=== PATIENT | female | born 1965 | race African-American/Black ===

== ENCOUNTER 2021-11-10 21:04 | Emergency (ER) | payer MEDICAID ==
[~2021-11-10] VITALS: Ht 177.8 cm; Wt 70.3 kg
[2021-11-10 21:17] VITALS: BP_SYST 146
[2021-11-10 22:30] VITALS: BP_SYST 137
[2021-11-11] MEDS ORDERED: DIPH-TET-PERTUS Vaccine 0.5 ML VIAL (ADACEL) I.M. ONE (00:15)
[2021-11-11] MEDS ORDERED: LIDOCAINE 1% 10 MG/ML, 20 ML MDV INJ ONE (00:15)
[2021-11-11] MEDS ORDERED: BACITRACIN/POLYMYXIN B SULFATE 30 GM TOPICAL OINT. TP ONE (00:45)
[2021-11-11] MEDS ORDERED: BACITRACIN 1 GM OINT TP ONE (00:46)
== END 2021-11-11 04:00 | disposition home or self-care (01) ==
LOC: SED 21:04
DX: S61.512A Laceration without foreign body of left wrist, initial encounter (principal); W45.8XXA Other foreign body or object entering through skin, initial encounter; Y93.89 Activity, other specified; Y92.89 Other specified places as the place of occurrence of the external cause; Y99.8 Other external cause status
CPT/HCPCS: 90715; 99284

== ENCOUNTER 2022-05-06 02:28 | Inpatient (IN) | payer MEDICAID ==
[~2022-05-06] VITALS: Ht 177.8 cm; Wt 70.3 kg
[2022-05-06] MEDS ORDERED: MAGNESIUM CITRATE 300 ML ORAL SOLUTION PO ONE (02:45)
[2022-05-06] MEDS ORDERED: ONDANSETRON 4 MG ODT TAB PO ONE (02:45)
[2022-05-06] MEDS ORDERED: ONDA-8 TL (02:47)
[2022-05-06 02:51] VITALS: BP_SYST 122
[2022-05-06] MEDS ORDERED: NACL 0.9% 1,000 ML IV ONE ×2 (03:15→05:00)
[2022-05-06] MEDS ORDERED: PROCHLORPERAZINE EDISYLATE 10 MG/2 ML VIAL IVP ONE (03:15)
[2022-05-06] MEDS ORDERED: ONDANSETRON HCL 4 MG/2 ML VIAL IVP ONE ×3 (03:15→03:30)
[2022-05-06] MEDS ORDERED: PANTOPRAZOLE SODIUM 40 MG/VIAL (PROTONIX) IVP ONE (03:30)
[2022-05-06 03:44] LABS: BASOPHILS # (AUTO) 0.1 K/uL (0.0-0.2); BASOPHILS % (AUTO) 0.9 % (0.0-2.0); EOSINOPHILS % (AUTO) 0.4 % (0.0-4.0); HEMATOCRIT 41.2 % (36-48); HEMOGLOBIN 13.7 g/dL (12.0-16.0); LYMPHOCYTES # (AUTO) 0.8 K/uL (1.0-5.5); LYMPHOCYTES % (AUTO) 5.7 % (20.5-51.5); MEAN CORPUSCULAR HEMOGLOBIN 28 pg (27-31); MEAN CORPUSCULAR HGB CONC 33 % (32-36); MEAN CORPUSCULAR VOLUME 84 fL (79.0-98.0); MONOCYTES # (AUTO) 0.8 K/uL (0.0-1.0); NEUTROPHILS # (AUTO) 11.4 K/uL (1.8-7.7); PLATELET COUNT (AUTO) 323 K/uL (130-430); RED BLOOD CELL COUNT(AUTO) 4.91 MIL/uL (4.2-6.2); RED CELL DISTRIBUTION WIDTH 14.9 % (9.0-15.0); WHITE BLOOD COUNT (AUTO) 13.1 K/uL (4.8-10.8)
[2022-05-06 03:47] LABS: CALCIUM 9.4 mg/dL (8.4-11.0); POTASSIUM 3.4 mmol/L (3.5-5.1)
[2022-05-06 04:01] LABS: ALBUMIN 3.8 g/dL (3.4-4.8); TOTAL BILIRUBIN 0.3 mg/dL (0.0-1.0)
[2022-05-06] MEDS ORDERED: MORPHINE 2 MG/ML INJ. SYRINGE IVP PRN (05:15)
[2022-05-06] MEDS ORDERED: ZOLPIDEM TARTRATE 5 MG TABLET PO PRN (09:45)
[2022-05-06] MEDS ORDERED: ACETAMINOPHEN 500 MG TABLET PO PRN (09:45)
[2022-05-06] MEDS ORDERED: DOCUSATE SODIUM 100 MG/10 ML UDC PO PRN (09:45)
[2022-05-06] MEDS ORDERED: HYDROcodone/ACETAMIN 7.5-325 MG TAB PO PRN (09:45)
[2022-05-06] MEDS ORDERED: guaiFENesin/DEXTROMETHORPHAN 10 ML UDC PO PRN (09:45)
[2022-05-06 10:04] LABS: PROTHROMBIN TIME 10.1 SECS (9.5-12.5)
[2022-05-06 10:15] LABS: FREE T4 (FREE THYROXINE) 0.8 ng/dl (0.8-1.5); PHOSPHORUS 3.8 mg/dL (2.7-4.5); THYROID STIMULATING HORMONE 1.24 uIu/mL (0.36-3.74)
[2022-05-06] MEDS ORDERED: GASTROGRAFIN 120 ML ONE (11:54)
[2022-05-06] MEDS ORDERED: BISACODYL 10 MG/SUPPOSITORY RC PRN (13:00)
[2022-05-06] MEDS ORDERED: BISACODYL 10 MG/SUPPOSITORY RC ONE (13:00)
[2022-05-06 14:41] VITALS: BP_SYST 129
[2022-05-06 15:35] VITALS: BP_SYST 125
[2022-05-06] MEDS ORDERED: MINERAL OIL 133 ML ENEMA RC ONE (16:15)
[2022-05-06 19:35] VITALS: BP_SYST 139
[2022-05-07] VITALS: BP_SYST 118
[2022-05-07 06:38] LABS: BASOPHILS % (AUTO) 0.2 % (0.0-2.0); HEMATOCRIT 37.9 % (36-48); HEMOGLOBIN 12.5 g/dL (12.0-16.0); LYMPHOCYTES # (AUTO) 1.1 K/uL (1.0-5.5); LYMPHOCYTES % (AUTO) 8.4 % (20.5-51.5); MEAN CORPUSCULAR HEMOGLOBIN 28 pg (27-31); MEAN CORPUSCULAR HGB CONC 33 % (32-36); MEAN CORPUSCULAR VOLUME 85 fL (79.0-98.0); MONOCYTES # (AUTO) 1.1 K/uL (0.0-1.0); MONOCYTES % (AUTO) 8.8 % (1.7-9.3); NEUTROPHILS # (AUTO) 10.6 K/uL (1.8-7.7); NEUTROPHILS % (AUTO) 82.6 % (40.0-70.0); PLATELET COUNT (AUTO) 274 K/uL (130-430); RED BLOOD CELL COUNT(AUTO) 4.48 MIL/uL (4.2-6.2); RED CELL DISTRIBUTION WIDTH 14.4 % (9.0-15.0); WHITE BLOOD COUNT (AUTO) 12.9 K/uL (4.8-10.8)
[2022-05-07 06:56] LABS: CALCIUM 8.7 mg/dL (8.4-11.0); CREATININE 0.94 mg/dL (0.55-1.30); POTASSIUM 3.5 mmol/L (3.5-5.1)
[2022-05-07 08:00] VITALS: BP_SYST 133
[2022-05-07] MEDS ORDERED: POTASSIUM CHLORIDE 40 MEQ, LIDOCAINE JECT 2% PF 100 MG 50 MG in NS 250 ML IV PRN (09:00)
[2022-05-07 10:41] LABS: BILIRUBIN,URINE NEGATIVE (NEGATIVE); BLOOD, URINE NEGATIVE (NEGATIVE); CLARITY/URINE CLEAR (CLEAR); COLOR,URINE YELLOW (YELLOW); GLUCOSE,URINE NEGATIVE (NEGATIVE); KETONES,URINE TRACE (NEGATIVE); LEUKOCYTE ESTERASE ,URINE NEGATIVE (NEGATIVE); NITRITE, URINE NEGATIVE (NEGATIVE); PROTEIN URINE 1+ (NEGATIVE); UROBILINOGEN,URINE 0.2 (0.2-1.0)
[2022-05-07 11:02] LABS: BARBITURATE, URINE NEGATIVE (NEG <=200); BENZODIAZEPINE, URINE NEGATIVE (NEG <=150); CANNABINOID, URINE NEGATIVE (NEG <=50); COCAINE, URINE NEGATIVE (NEG <=150); METHAMPHETAMINES SCREEN,URINE NEGATIVE (NEG <=500); OPIATE, URINE NEGATIVE (NEG <=100); PHENCYCLIDINE SCREEN,URINE NEGATIVE (NEG <=25); UR TRICYCLIC ANTIDEPRESSANTS NEGATIVE (NEG <=300); URINE AMPHETAMINE NEGATIVE (NEG <=500); URINE METHADONE NEGATIVE (NEG <=200); URINE OXYCODONE SCREEN NEGATIVE (NEG <=100); URINE PROPOXYPHENE SCREEN NEGATIVE (NEG <=300)
[2022-05-07 12:00] VITALS: BP_SYST 132
[2022-05-07] MEDS ORDERED: BISACODYL 5 MG TABLET.DR (DULCOLAX) PO ONE (17:00)
[2022-05-07] MEDS ORDERED: GOLYTELY / COLYTE SOLUTION 4 LITERS PO ONE (18:00)
[2022-05-07 18:37] VITALS: BP_SYST 135
[2022-05-07 19:30] VITALS: BP_SYST 143
[2022-05-08 00:40] VITALS: BP_SYST 140
[2022-05-08 06:49] LABS: BASOPHILS % (AUTO) 0.1 % (0.0-2.0); HEMATOCRIT 39.1 % (36-48); HEMOGLOBIN 12.9 g/dL (12.0-16.0); LYMPHOCYTES % (AUTO) 8.8 % (20.5-51.5); MEAN CORPUSCULAR HEMOGLOBIN 28 pg (27-31); MEAN CORPUSCULAR HGB CONC 33 % (32-36); MEAN CORPUSCULAR VOLUME 85 fL (79.0-98.0); MONOCYTES # (AUTO) 0.9 K/uL (0.0-1.0); MONOCYTES % (AUTO) 7.8 % (1.7-9.3); NEUTROPHILS # (AUTO) 9.8 K/uL (1.8-7.7); NEUTROPHILS % (AUTO) 83.3 % (40.0-70.0); PLATELET COUNT (AUTO) 260 K/uL (130-430); RED BLOOD CELL COUNT(AUTO) 4.61 MIL/uL (4.2-6.2); RED CELL DISTRIBUTION WIDTH 14.7 % (9.0-15.0); WHITE BLOOD COUNT (AUTO) 11.8 K/uL (4.8-10.8)
[2022-05-08 07:44] LABS: PROTHROMBIN TIME 10.7 SECS (9.5-12.5)
[2022-05-08 08:00] VITALS: BP_SYST 139
[2022-05-08 08:05] LABS: CALCIUM 8.8 mg/dL (8.4-11.0); CREATININE 0.84 mg/dL (0.55-1.30); POTASSIUM 3.6 mmol/L (3.5-5.1)
[2022-05-08] MEDS: MIDAZOLAM HCL 5 MG/5 ML VIAL ONE ×3 (11:00→11:08)
[2022-05-08] MEDS: fentaNYL CITRATE/PF 100 MCG/2 ML AMP ONE ×2 (11:00→11:08)
[2022-05-08 12:55] VITALS: BP_SYST 142
[2022-05-08] MEDS: D5NS 1,000 ML IV SCH (18:45)
[2022-05-08] MEDS: ONDANSETRON HCL 4 MG/2 ML VIAL IVP PRN (23:43)
[2022-05-09 00:22] VITALS: BP_SYST 158
[2022-05-09 07:37] LABS: BASOPHILS % (AUTO) 0.2 % (0.0-2.0); HEMATOCRIT 37.6 % (36-48); HEMOGLOBIN 12.4 g/dL (12.0-16.0); LYMPHOCYTES # (AUTO) 1.5 K/uL (1.0-5.5); MEAN CORPUSCULAR HEMOGLOBIN 28 pg (27-31); MEAN CORPUSCULAR HGB CONC 33 % (32-36); MEAN CORPUSCULAR VOLUME 85 fL (79.0-98.0); MONOCYTES % (AUTO) 8.2 % (1.7-9.3); NEUTROPHILS # (AUTO) 9.7 K/uL (1.8-7.7); NEUTROPHILS % (AUTO) 79.6 % (40.0-70.0); PLATELET COUNT (AUTO) 253 K/uL (130-430); RED BLOOD CELL COUNT(AUTO) 4.43 MIL/uL (4.2-6.2); RED CELL DISTRIBUTION WIDTH 14.6 % (9.0-15.0); WHITE BLOOD COUNT (AUTO) 12.2 K/uL (4.8-10.8)
[2022-05-09 08:05] LABS: CALCIUM 8.8 mg/dL (8.4-11.0); CREATININE 0.94 mg/dL (0.55-1.30); POTASSIUM 3.7 mmol/L (3.5-5.1)
[2022-05-09 08:16] VITALS: BP_SYST 143
[2022-05-09] MEDS ORDERED: hydrALAZINE HCL 20 MG/ML VIAL IVP PRN (08:45)
[2022-05-09] MEDS: ONDANSETRON HCL 4 MG/2 ML VIAL IVP PRN (10:46)
[2022-05-09] MEDS: D5NS 1,000 ML IV SCH (11:25)
[2022-05-09 11:26] VITALS: BP_SYST 137
[2022-05-09 16:26] VITALS: BP_SYST 149
[2022-05-10 00:44] VITALS: BP_SYST 124
[2022-05-10] MEDS: D5NS 1,000 ML IV SCH ×2 (04:05→20:45)
[2022-05-10 07:03] LABS: BASOPHILS % (AUTO) 0.2 % (0.0-2.0); EOSINOPHILS % (AUTO) 0.1 % (0.0-4.0); HEMATOCRIT 37.3 % (36-48); HEMOGLOBIN 12.8 g/dL (12.0-16.0); LYMPHOCYTES # (AUTO) 1.6 K/uL (1.0-5.5); LYMPHOCYTES % (AUTO) 15.3 % (20.5-51.5); MEAN CORPUSCULAR HEMOGLOBIN 29 pg (27-31); MEAN CORPUSCULAR HGB CONC 34 % (32-36); MEAN CORPUSCULAR VOLUME 85 fL (79.0-98.0); MONOCYTES # (AUTO) 0.9 K/uL (0.0-1.0); NEUTROPHILS % (AUTO) 75.4 % (40.0-70.0); PLATELET COUNT (AUTO) 258 K/uL (130-430); RED CELL DISTRIBUTION WIDTH 14.5 % (9.0-15.0); WHITE BLOOD COUNT (AUTO) 10.5 K/uL (4.8-10.8)
[2022-05-10 07:15] LABS: CALCIUM 8.6 mg/dL (8.4-11.0); CREATININE 0.91 mg/dL (0.55-1.30)
[2022-05-10 08:00] VITALS: BP_SYST 117
[2022-05-10 12:00] VITALS: BP_SYST 128
[2022-05-10 16:00] VITALS: BP_SYST 117; BP_SYST 124
[2022-05-10 20:00] VITALS: BP_SYST 137
[2022-05-11] VITALS: BP_SYST 137
[2022-05-11] MEDS ORDERED: MAGNESIUM CITRATE 300 ML ORAL SOLUTION PO ONE (06:00)
[2022-05-11 07:12] LABS: INR 1.1 (0.8-1.2); PROTHROMBIN TIME 11.9 SECS (9.5-12.5)
[2022-05-11 07:20] LABS: BASOPHILS % (AUTO) 0.1 % (0.0-2.0); EOSINOPHILS % (AUTO) 0.2 % (0.0-4.0); HEMATOCRIT 38.3 % (36-48); HEMOGLOBIN 12.8 g/dL (12.0-16.0); LYMPHOCYTES # (AUTO) 1.5 K/uL (1.0-5.5); LYMPHOCYTES % (AUTO) 18.8 % (20.5-51.5); MEAN CORPUSCULAR HEMOGLOBIN 28 pg (27-31); MEAN CORPUSCULAR HGB CONC 33 % (32-36); MEAN CORPUSCULAR VOLUME 85 fL (79.0-98.0); MONOCYTES # (AUTO) 0.7 K/uL (0.0-1.0); MONOCYTES % (AUTO) 9.4 % (1.7-9.3); NEUTROPHILS # (AUTO) 5.6 K/uL (1.8-7.7); NEUTROPHILS % (AUTO) 71.5 % (40.0-70.0); PLATELET COUNT (AUTO) 248 K/uL (130-430); RED BLOOD CELL COUNT(AUTO) 4.51 MIL/uL (4.2-6.2); RED CELL DISTRIBUTION WIDTH 14.4 % (9.0-15.0); WHITE BLOOD COUNT (AUTO) 7.9 K/uL (4.8-10.8)
[2022-05-11 07:47] LABS: CALCIUM 8.6 mg/dL (8.4-11.0); CREATININE 0.89 mg/dL (0.55-1.30); POTASSIUM 3.8 mmol/L (3.5-5.1)
[2022-05-11 08:00] VITALS: BP_SYST 134
[2022-05-11 12:00] VITALS: BP_SYST 136
[2022-05-11] MEDS ORDERED: BUPIVACAINE LIPOSOME/PF 266 MG/20 ML VIAL INFIL ONE ×2 (13:01→13:15)
[2022-05-11] MEDS ORDERED: NS 1000 ML IV.SOLN IV ONE (13:15)
[2022-05-11] MEDS ORDERED: ROCURONIUM BROMIDE 10 MG/ML (ZEMURON) ONE (13:15)
[2022-05-11] MEDS ORDERED: KETOROLAC TROMETHAMINE 30 MG VIAL ONE (13:15)
[2022-05-11] MEDS ORDERED: BUPIVACAINE /PF 0.25% 10 ML VIAL INJ ONE (13:15)
[2022-05-11] MEDS ORDERED: SEVOFLURANE 15 MIN GAS INH ONE (13:15)
[2022-05-11] MEDS ORDERED: PROPOFOL 200MG/ 20ML VIAL (DIPRIVAN) IV ONE (13:15)
[2022-05-11] MEDS ORDERED: SUGAMMADEX SODIUM 200 MG/2 ML VIAL IV ONE (13:15)
[2022-05-11] MEDS ORDERED: MIDAZOLAM HCL 5 MG/5 ML VIAL ONE (13:15)
[2022-05-11] MEDS ORDERED: HYDROmorphone 2 MG/ML VIAL ONE (13:15)
[2022-05-11] MEDS ORDERED: METOCLOPRAMIDE HCL 10 MG/2 ML VIAL ONE (13:15)
[2022-05-11] MEDS ORDERED: DEXAMETHASONE SOD PHOSPHATE 4 MG/ML VIAL ONE (13:15)
[2022-05-11] MEDS ORDERED: ePHEDrine sulfate 50 MG/ML VIAL ONE (13:15)
[2022-05-11] MEDS ORDERED: ONDANSETRON HCL 4 MG/2 ML VIAL ONE (13:15)
[2022-05-11] MEDS ORDERED: metroNIDAZOLE 500 mg/NS 100 mL IVPB IV ONE (13:15)
[2022-05-11] MEDS ORDERED: NS IRRIG SOLN 1000 ML IR ONE (13:15)
[2022-05-11] MEDS ORDERED: LIDOCAINE 1% 10 MG/ML, 20 ML MDV ONE (13:15)
[2022-05-11] MEDS ORDERED: MEPERIDINE HCL/PF 25 MG/ML DISP.SYRIN IVP PRN (14:45)
[2022-05-11] MEDS ORDERED: LR 1,000 ML IV SCH ×2 (14:45→16:00)
[2022-05-11] MEDS ORDERED: ONDANSETRON HCL 4 MG/2 ML VIAL IVP PRN (14:45)
[2022-05-11] MEDS ORDERED: fentaNYL CITRATE/PF 100 MCG/2 ML AMP IVP ONE (14:45)
[2022-05-11] MEDS ORDERED: KETOROLAC TROMETHAMINE 30 MG VIAL IVP PRN (14:45)
[2022-05-11 17:40] VITALS: BP_SYST 116
[2022-05-11 20:00] VITALS: BP_SYST 127
[2022-05-11] MEDS: metroNIDAZOLE 500 mg/NS 100 ML IV SCH (21:42)
[2022-05-11] MEDS: GABAPENTIN 300 MG CAPSULE PO SCH (21:47)
[2022-05-12] VITALS: BP_SYST 131
[2022-05-12] MEDS: HYDROmorphone 1 MG/ML INJ. CARTRIDGE IVP PRN ×3 (07:00→17:14)
[2022-05-12] MEDS: metroNIDAZOLE 500 mg/NS 100 ML IV SCH ×2 (07:11→14:29)
[2022-05-12 08:00] VITALS: BP_SYST 101
[2022-05-12 08:09] LABS: BASOPHILS % (AUTO) 0.2 % (0.0-2.0); HEMATOCRIT 39.6 % (36-48); HEMOGLOBIN 13.2 g/dL (12.0-16.0); LYMPHOCYTES # (AUTO) 1.1 K/uL (1.0-5.5); LYMPHOCYTES % (AUTO) 10.4 % (20.5-51.5); MEAN CORPUSCULAR HEMOGLOBIN 29 pg (27-31); MEAN CORPUSCULAR HGB CONC 33 % (32-36); MEAN CORPUSCULAR VOLUME 86 fL (79.0-98.0); MONOCYTES # (AUTO) 0.6 K/uL (0.0-1.0); MONOCYTES % (AUTO) 5.6 % (1.7-9.3); NEUTROPHILS % (AUTO) 83.8 % (40.0-70.0); PLATELET COUNT (AUTO) 253 K/uL (130-430); RED BLOOD CELL COUNT(AUTO) 4.63 MIL/uL (4.2-6.2); RED CELL DISTRIBUTION WIDTH 14.9 % (9.0-15.0); WHITE BLOOD COUNT (AUTO) 10.8 K/uL (4.8-10.8)
[2022-05-12] MEDS: D5NS 1,000 ML IV SCH (08:40)
[2022-05-12 08:45] LABS: CALCIUM 8.1 mg/dL (8.4-11.0); CREATININE 0.83 mg/dL (0.55-1.30); POTASSIUM 4.1 mmol/L (3.5-5.1)
[2022-05-12] MEDS: GABAPENTIN 300 MG CAPSULE PO SCH ×4 (08:53→21:00)
[2022-05-12 12:00] VITALS: BP_SYST 111
[2022-05-12 15:40] VITALS: BP_SYST 105
[2022-05-12 20:00] VITALS: BP_SYST 118
[2022-05-12] MEDS: ACETAMINOPHEN 500 MG TABLET PO SCH (21:00)
[2022-05-13 00:48] VITALS: BP_SYST 107
[2022-05-13] MEDS: ACETAMINOPHEN 500 MG TABLET PO SCH ×4 (06:15→21:12)
[2022-05-13 06:41] LABS: BASOPHILS % (AUTO) 0.1 % (0.0-2.0); EOSINOPHILS % (AUTO) 0.2 % (0.0-4.0); HEMATOCRIT 34.2 % (36-48); HEMOGLOBIN 11.4 g/dL (12.0-16.0); LYMPHOCYTES # (AUTO) 1.4 K/uL (1.0-5.5); LYMPHOCYTES % (AUTO) 10.5 % (20.5-51.5); MEAN CORPUSCULAR HEMOGLOBIN 28 pg (27-31); MEAN CORPUSCULAR HGB CONC 33 % (32-36); MEAN CORPUSCULAR VOLUME 85 fL (79.0-98.0); MONOCYTES # (AUTO) 0.9 K/uL (0.0-1.0); MONOCYTES % (AUTO) 6.9 % (1.7-9.3); NEUTROPHILS % (AUTO) 82.3 % (40.0-70.0); PLATELET COUNT (AUTO) 238 K/uL (130-430); RED BLOOD CELL COUNT(AUTO) 4.02 MIL/uL (4.2-6.2); RED CELL DISTRIBUTION WIDTH 14.8 % (9.0-15.0); WHITE BLOOD COUNT (AUTO) 13.4 K/uL (4.8-10.8)
[2022-05-13 06:55] LABS: CALCIUM 8.1 mg/dL (8.4-11.0); CREATININE 0.87 mg/dL (0.55-1.30); POTASSIUM 3.6 mmol/L (3.5-5.1)
[2022-05-13 07:00] VITALS: BP_SYST 121
[2022-05-13 08:00] VITALS: BP_SYST 154
[2022-05-13] MEDS: GABAPENTIN 300 MG CAPSULE PO SCH ×5 (09:00→21:17)
[2022-05-13] MEDS ORDERED: FUROSEMIDE 20 MG/2 ML VIAL IVP ONE (09:15)
[2022-05-13] MEDS: HYDROmorphone 1 MG/ML INJ. CARTRIDGE IVP PRN (12:22)
[2022-05-13 16:00] VITALS: BP_SYST 127
[2022-05-13 19:00] VITALS: BP_SYST 123
[2022-05-13 20:00] VITALS: BP_SYST 123
[2022-05-13] MEDS: D5NS 1,000 ML IV SCH (21:14)
[2022-05-14 00:37] VITALS: BP_SYST 110
[2022-05-14] MEDS: ACETAMINOPHEN 500 MG TABLET PO SCH (06:32)
[2022-05-14 08:00] VITALS: BP_SYST 114; BP_SYST 118
[2022-05-14] MEDS ORDERED: FUROSEMIDE 20 MG/2 ML VIAL IVP SCH (09:00)
[2022-05-14 09:39] LABS: BASOPHILS % (AUTO) 0.3 % (0.0-2.0); EOSINOPHILS # (AUTO) 0.2 K/uL (0.0-0.4); EOSINOPHILS % (AUTO) 1.6 % (0.0-4.0); HEMATOCRIT 31.5 % (36-48); HEMOGLOBIN 10.3 g/dL (12.0-16.0); LYMPHOCYTES # (AUTO) 1.3 K/uL (1.0-5.5); LYMPHOCYTES % (AUTO) 11.4 % (20.5-51.5); MEAN CORPUSCULAR HEMOGLOBIN 28 pg (27-31); MEAN CORPUSCULAR HGB CONC 33 % (32-36); MEAN CORPUSCULAR VOLUME 87 fL (79.0-98.0); MONOCYTES # (AUTO) 0.8 K/uL (0.0-1.0); MONOCYTES % (AUTO) 7.4 % (1.7-9.3); NEUTROPHILS # (AUTO) 8.9 K/uL (1.8-7.7); NEUTROPHILS % (AUTO) 79.3 % (40.0-70.0); PLATELET COUNT (AUTO) 247 K/uL (130-430); RED BLOOD CELL COUNT(AUTO) 3.64 MIL/uL (4.2-6.2); WHITE BLOOD COUNT (AUTO) 11.2 K/uL (4.8-10.8)
[2022-05-14 09:49] LABS: CREATININE 0.81 mg/dL (0.55-1.30); POTASSIUM 3.2 mmol/L (3.5-5.1)
[2022-05-14] MEDS ORDERED: POTASSIUM CHLORIDE 20 MEQ/PKT PACKET PO ONE (13:15)
[2022-05-14 16:00] VITALS: BP_SYST 120
[2022-05-14] MEDS ORDERED: FURO-150 PO (16:15)
[2022-05-14] MEDS ORDERED: HYDR-3917 PO (16:15)
[2022-05-14] MEDS: GABAPENTIN 300 MG CAPSULE PO SCH (16:16)
[2022-05-14 18:20] VITALS: BP_SYST 118
== END 2022-05-14 18:45 | disposition home or self-care (01) | DRG 720 ==
LOC: SED 02:28 → STU 05:06 → SMU 05-08 18:34
PROVIDERS: ADMIT Family Medicine; ATTEND Family Medicine
PROC: 0DBN8ZX Excision of Sigmoid Colon, Via Natural or Artificial Opening Endoscopic, Diagnostic (ICD-10-PCS; principal; 2022-05-08 08:30)
DX: A41.9 Sepsis, unspecified organism (principal); J96.00 Acute respiratory failure, unspecified whether with hypoxia or hypercapnia; G93.41 Metabolic encephalopathy; K56.699 Other intestinal obstruction unspecified as to partial versus complete obstruction; K64.4 Residual hemorrhoidal skin tags; E83.41 Hypermagnesemia; E86.0 Dehydration; E87.6 Hypokalemia; K52.9 Noninfective gastroenteritis and colitis, unspecified; E87.70 Fluid overload, unspecified; Z79.899 Other long term (current) drug therapy
CPT/HCPCS: 36415; 45381; 71045; 74018; 74250-TC; 76376; 80048; 80053; 80061; 80307; 81003; 82150; 83036; 83605; 83690; 83735; 83880; 84100; 84439; 84443; 85025; 85610-TC; 85730-TC; 86886; 86900; 86901; 87040; 87081; 88305; 88307; 88309; 93005; 96361; 96374; 96375; 99285; C9113; C9290; G0378; J0780; J1100; J1170; J1885; J1940; J1956; J2001; J2250; J2405; J2704; J2765; J3010; J3480; J3490; J7030; J7050; Q0162; Q9963

== ENCOUNTER 2023-04-26 07:58 | Emergency (ER) | payer MEDICAID ==
[~2023-04-26] VITALS: Ht 177.8 cm; Wt 63.5 kg
[~2023-04-26 07:58] MED LIST: FURO-150 PO; HYDR-3917 PO
[2023-04-26] MEDS ORDERED: ONDA-8 TL (08:15)
[2023-04-26 08:19] VITALS: BP_SYST 130; PULSE 74; RESP 17; TEMP 97.3; O2SAT 98
[2023-04-26 08:25] VITALS: BP_SYST 131; PULSE 75; RESP 16; TEMP 97.3; O2SAT 97
== END 2023-04-26 08:26 | disposition home or self-care (01) ==
LOC: SED 07:58
DX: A08.4 Viral intestinal infection, unspecified (principal); R11.0 Nausea; Z88.0 Allergy status to penicillin; Z79.899 Other long term (current) drug therapy
CPT/HCPCS: 99283

== ENCOUNTER 2023-05-15 05:32 | Emergency (ER) | payer MEDICAID ==
[~2023-05-15] VITALS: Ht 177.8 cm; Wt 61.2 kg
[~2023-05-15 05:32] MED LIST changes: +ONDA-8 TL
[2023-05-15 05:41] VITALS: BP_SYST 124; PULSE 109; RESP 20; TEMP 98; O2SAT 98
[2023-05-15] MEDS ORDERED: ONDANSETRON HCL 4 MG/2 ML VIAL IVP ONE (06:30)
[2023-05-15] MEDS ORDERED: NACL 0.9% 1,000 ML IV ONE (06:30)
[2023-05-15 06:43] LABS: BASOPHILS % (AUTO) 0.4 % (0.0-2.0); EOSINOPHILS % (AUTO) 0.4 % (0.0-4.0); HEMATOCRIT 34.8 % (36-48); HEMOGLOBIN 11.2 g/dL (12.0-16.0); LYMPHOCYTES # (AUTO) 1.6 K/uL (1.0-5.5); LYMPHOCYTES % (AUTO) 19.4 % (20.5-51.5); MEAN CORPUSCULAR HEMOGLOBIN 26 pg (27-31); MEAN CORPUSCULAR HGB CONC 32 % (32-36); MEAN CORPUSCULAR VOLUME 82 fL (79.0-98.0); MONOCYTES # (AUTO) 0.6 K/uL (0.0-1.0); MONOCYTES % (AUTO) 7.8 % (1.7-9.3); NEUTROPHILS # (AUTO) 5.9 K/uL (1.8-7.7); PLATELET COUNT (AUTO) 334 K/uL (130-430); RED BLOOD CELL COUNT(AUTO) 4.25 MIL/uL (4.2-6.2); RED CELL DISTRIBUTION WIDTH 14.7 % (9.0-15.0); WHITE BLOOD COUNT (AUTO) 8.1 K/uL (4.8-10.8)
[2023-05-15 06:49] LABS: BILIRUBIN,URINE 1+ (NEGATIVE); BLOOD, URINE 2+ (NEGATIVE); CLARITY/URINE SLIGHTLY CLOUDY (CLEAR); COLOR,URINE YELLOW (YELLOW); GLUCOSE,URINE NEGATIVE (NEGATIVE); KETONES,URINE 1+ (NEGATIVE); LEUKOCYTE ESTERASE ,URINE NEGATIVE (NEGATIVE); NITRITE, URINE NEGATIVE (NEGATIVE); PROTEIN URINE 1+ (NEGATIVE)
[2023-05-15 06:50] LABS: BACTERIA,URINE None Seen /HPF (None Seen); RBC,URINE 0-3 /HPF (0-3)
[2023-05-15 07:03] LABS: CALCIUM 8.8 mg/dL (8.4-11.0); CREATININE 0.68 mg/dL (0.55-1.30); POTASSIUM 3.2 mmol/L (3.5-5.1)
[2023-05-15 07:09] LABS: ALBUMIN 3.2 g/dL (3.4-4.8); TOTAL BILIRUBIN 0.6 mg/dL (0.0-1.0); TOTAL PROTEIN, SERUM 7.7 g/dL (6.4-8.3)
[2023-05-15] MEDS ORDERED: CIPR500T5 PO (08:19)
[2023-05-15] MEDS ORDERED: ONDA-8 TL (08:20)
[2023-05-15] MEDS ORDERED: cefTRIAXone 1 GM IVPB PREMIX 50 ML IV ONE (08:30)
[2023-05-15 09:30] VITALS: BP_SYST 122; PULSE 86; RESP 16; TEMP 98; O2SAT 99
== END 2023-05-15 09:29 | disposition home or self-care (01) ==
LOC: SED 05:32
DX: N10 Acute pyelonephritis (principal); R11.2 Nausea with vomiting, unspecified; R53.1 Weakness; R10.9 Unspecified abdominal pain; Z88.0 Allergy status to penicillin; Z79.899 Other long term (current) drug therapy
CPT/HCPCS: 99284; 96365; 96361; 80053; 81000; 83690; 85025; 87040; 36415; J0696; J2405; J7030

== ENCOUNTER 2023-07-06 20:52 | Inpatient (IN) | payer MEDICAID ==
[~2023-07-06] VITALS: Ht 177.8 cm; Wt 46.7 kg
[~2023-07-06 20:52] MED LIST changes: +FOLI-43 PO; +LEVO-62 PO; +METR-154 PO; +TRAM50TA2 PO
[2023-07-06 20:55] VITALS: BP_SYST 93; PULSE 95; RESP 16; TEMP 98.2; O2SAT 100
[2023-07-07] LABS: BASOPHILS % (AUTO) 0.1 % (0.0-2.0); HEMATOCRIT 36.5 % (36-48); HEMOGLOBIN 11.9 g/dL (12.0-16.0); LYMPHOCYTES # (AUTO) 1.1 K/uL (1.0-5.5); LYMPHOCYTES % (AUTO) 7.9 % (20.5-51.5); MEAN CORPUSCULAR HEMOGLOBIN 27 pg (27-31); MEAN CORPUSCULAR HGB CONC 33 % (32-36); MEAN CORPUSCULAR VOLUME 83 fL (79.0-98.0); MONOCYTES # (AUTO) 0.8 K/uL (0.0-1.0); MONOCYTES % (AUTO) 5.6 % (1.7-9.3); NEUTROPHILS # (AUTO) 12.3 K/uL (1.8-7.7); NEUTROPHILS % (AUTO) 86.4 % (40.0-70.0); PLATELET COUNT (AUTO) 223 K/uL (130-430); RED BLOOD CELL COUNT(AUTO) 4.41 MIL/uL (4.2-6.2); RED CELL DISTRIBUTION WIDTH 15.3 % (9.0-15.0); WHITE BLOOD COUNT (AUTO) 14.2 K/uL (4.8-10.8)
[2023-07-07 00:22] LABS: ANION GAP 21 (5-15); CALCIUM 8.5 mg/dL (8.4-11.0); CARBON DIOXIDE 33 mmol/L (23-29); GLUCOSE 91 mg/dL (74-106); POTASSIUM 3.9 mmol/L (3.5-5.1)
[2023-07-07 00:23] LABS: ALANINE AMINOTRANSFERASE 70 U/L (12-78); ALBUMIN 3.3 g/dL (3.4-4.8); ASPARTATE AMINOTRANSFERASE 48 U/L (10-37); GFR AFRICAN AMERICAN 5 mL/min (>90); TOTAL PROTEIN, SERUM 8.3 g/dL (6.4-8.3)
[2023-07-07 00:25] LABS: GFR NON AFRICAN-AMERICAN 4 mL/min (>90)
[2023-07-07 00:29] LABS: CHLORIDE 64 mmol/L (98-107); SODIUM SERUM 118 mmol/L (136-145)
[2023-07-07 00:30] LABS: CREATININE 10.13 mg/dL (0.55-1.30); UREA NITROGEN, BLOOD 225 mg/dL (8-21)
[2023-07-07] MEDS ORDERED: ASPIRIN 81 MG TAB.CHEW PO ONE (00:45)
[2023-07-07] MEDS ORDERED: NITROGLYCERIN 1 INCH (GM) OINT. TP ONE (00:45)
[2023-07-07] MEDS ORDERED: NACL 0.9% 1,000 ML IV ONE (00:45)
[2023-07-07 04:39] LABS: BILIRUBIN,URINE NEGATIVE (NEGATIVE); BLOOD, URINE 2+ (NEGATIVE); COLOR,URINE YELLOW (YELLOW); GLUCOSE,URINE NEGATIVE (NEGATIVE); KETONES,URINE NEGATIVE (NEGATIVE); LEUKOCYTE ESTERASE ,URINE 3+ (NEGATIVE); NITRITE, URINE NEGATIVE (NEGATIVE); PROTEIN URINE 2+ (NEGATIVE); UROBILINOGEN,URINE 0.2 (0.2-1.0)
[2023-07-07 04:55] LABS: CLARITY/URINE SLIGHTLY CLOUDY (CLEAR)
[2023-07-07 04:56] LABS: BACTERIA,URINE MODERATE /HPF (None Seen); WBC,URINE 20-50 /HPF (0-3)
[2023-07-07] MEDS: ASPIRIN 81 MG TABLET(ECOTRIN) PO SCH (09:00)
[2023-07-07] MEDS ORDERED: ACETAMINOPHEN 325 MG TABLET PO PRN ×2 (12:00→13:00)
[2023-07-07] MEDS ORDERED: traMADol HCL HCL 50 MG TABLET (ULTRAM) PO PRN (12:00)
[2023-07-07] MEDS ORDERED: FOLIC ACID 1 MG TABLET PO ONE (12:00)
[2023-07-07] MEDS ORDERED: HYDROcodone/ACETAMIN 5-325 MG TAB (NORCO/ VICODIN) PO PRN (12:00)
[2023-07-07] MEDS ORDERED: NALOXONE HCL 0.4 MG/ML AMP (NARCAN) IVP PRN (12:00)
[2023-07-07] MEDS ORDERED: LORazepam 2 MG/ML VIAL IVP PRN (12:00)
[2023-07-07] MEDS: D5NS 1,000 ML IV SCH ×2 (13:10→22:49)
[2023-07-07] MEDS ORDERED: *LOVENOX 1MG/KG Q24H/PHARMACY XX SCH (13:45)
[2023-07-07] MEDS ORDERED: ENOXAPARIN SODIUM 60 MG/0.6 ML SYRINGE SUBCUT ONE (14:00)
[2023-07-07] MEDS ORDERED: metroNIDAZOLE 500 MG TABLET PO ONE (14:00)
[2023-07-07] MEDS ORDERED: FUROSEMIDE 20 MG TABLET PO ONE (14:00)
[2023-07-07] MEDS: levoFLOXacin 500 MG TABLET PO SCH (19:32)
[2023-07-07] MEDS: FOLIC ACID 1 MG TABLET PO SCH (19:32)
[2023-07-07 20:20] VITALS: BP_SYST 96; PULSE 81; RESP 16; TEMP 97.7; O2SAT 100
[2023-07-07 20:39] VITALS: BP_SYST 102; PULSE 62; RESP 16; TEMP 97.8
[2023-07-07] MEDS: metroNIDAZOLE 500 MG TABLET PO SCH (22:48)
[2023-07-07] MEDS: ENOXAPARIN SODIUM 30 MG/0.3 ML SYRINGE SUBCUT SCH (22:49)
[2023-07-08 00:45] VITALS: BP_SYST 95; PULSE 80; RESP 16; TEMP 97.5; O2SAT 100
[2023-07-08 05:55] LABS: BASOPHILS % (AUTO) 0.1 % (0.0-2.0); EOSINOPHILS % (AUTO) 0.5 % (0.0-4.0); HEMATOCRIT 30.4 % (36-48); LYMPHOCYTES # (AUTO) 0.8 K/uL (1.0-5.5); MEAN CORPUSCULAR HEMOGLOBIN 27 pg (27-31); MEAN CORPUSCULAR HGB CONC 33 % (32-36); MEAN CORPUSCULAR VOLUME 84 fL (79.0-98.0); MONOCYTES # (AUTO) 0.6 K/uL (0.0-1.0); MONOCYTES % (AUTO) 6.5 % (1.7-9.3); NEUTROPHILS # (AUTO) 7.9 K/uL (1.8-7.7); NEUTROPHILS % (AUTO) 84.9 % (40.0-70.0); PLATELET COUNT (AUTO) 158 K/uL (130-430); RED BLOOD CELL COUNT(AUTO) 3.65 MIL/uL (4.2-6.2); RED CELL DISTRIBUTION WIDTH 15.1 % (9.0-15.0); WHITE BLOOD COUNT (AUTO) 9.4 K/uL (4.8-10.8)
[2023-07-08 06:22] LABS: CALCIUM 7.8 mg/dL (8.4-11.0); PHOSPHORUS 9.2 mg/dL (2.7-4.5)
[2023-07-08 06:30] LABS: CREATININE 7.62 mg/dL (0.55-1.30); POTASSIUM 2.6 mmol/L (3.5-5.1)
[2023-07-08] MEDS ORDERED: NS 250 ML IV ONE (08:00)
[2023-07-08] MEDS ORDERED: POTASSIUM CHLORIDE 20 MEQ TABLET.ER PO ONE (08:00)
[2023-07-08 08:30] VITALS: BP_SYST 94; PULSE 78; RESP 17; TEMP 98.6; O2SAT 100
[2023-07-08] MEDS ORDERED: FUROSEMIDE 20 MG TABLET PO SCH (09:00)
[2023-07-08] MEDS ORDERED: DIATR MEGLU/DIATRIZ SOD 30 ML SOLUTION PO ONE (09:00)
[2023-07-08] MEDS: metroNIDAZOLE 500 MG TABLET PO SCH ×2 (10:19→21:59)
[2023-07-08] MEDS: FOLIC ACID 1 MG TABLET PO SCH (10:20)
[2023-07-08] MEDS: ASPIRIN 81 MG TABLET(ECOTRIN) PO SCH (10:20)
[2023-07-08] MEDS: ENOXAPARIN SODIUM 30 MG/0.3 ML SYRINGE SUBCUT SCH ×2 (10:20→21:59)
[2023-07-08] MEDS: NACL 0.9% 1,000 ML IV SCH ×2 (10:24→21:58)
[2023-07-08 12:30] VITALS: BP_SYST 97; PULSE 79; RESP 17; TEMP 97.7; O2SAT 97
[2023-07-08] MEDS: levoFLOXacin 500 MG TABLET PO SCH (14:00)
[2023-07-08 18:04] VITALS: O2SAT 97
[2023-07-08 20:00] VITALS: BP_SYST 94; PULSE 83; RESP 16; TEMP 97.5; O2SAT 97
[2023-07-09 00:30] VITALS: BP_SYST 92; PULSE 84; RESP 16; TEMP 97.9; O2SAT 99
[2023-07-09] MEDS: NACL 0.9% 1,000 ML IV SCH ×3 (05:45→21:02)
[2023-07-09 05:58] LABS: BASOPHILS % (AUTO) 0.2 % (0.0-2.0); EOSINOPHILS # (AUTO) 0.1 K/uL (0.0-0.4); EOSINOPHILS % (AUTO) 0.8 % (0.0-4.0); HEMATOCRIT 27.1 % (36-48); HEMOGLOBIN 8.8 g/dL (12.0-16.0); LYMPHOCYTES # (AUTO) 0.6 K/uL (1.0-5.5); LYMPHOCYTES % (AUTO) 7.1 % (20.5-51.5); MEAN CORPUSCULAR HEMOGLOBIN 28 pg (27-31); MEAN CORPUSCULAR HGB CONC 32 % (32-36); MEAN CORPUSCULAR VOLUME 85 fL (79.0-98.0); MONOCYTES # (AUTO) 0.5 K/uL (0.0-1.0); NEUTROPHILS # (AUTO) 7.2 K/uL (1.8-7.7); NEUTROPHILS % (AUTO) 85.9 % (40.0-70.0); PLATELET COUNT (AUTO) 135 K/uL (130-430); RED BLOOD CELL COUNT(AUTO) 3.18 MIL/uL (4.2-6.2); RED CELL DISTRIBUTION WIDTH 15.3 % (9.0-15.0); WHITE BLOOD COUNT (AUTO) 8.4 K/uL (4.8-10.8)
[2023-07-09 06:28] LABS: ALBUMIN 2.3 g/dL (3.4-4.8); CALCIUM 7.5 mg/dL (8.4-11.0); CREATININE 4.25 mg/dL (0.55-1.30); TOTAL BILIRUBIN 0.6 mg/dL (0.0-1.0); TOTAL PROTEIN, SERUM 5.9 g/dL (6.4-8.3)
[2023-07-09 06:30] LABS: POTASSIUM 1.9 mmol/L (3.5-5.1)
[2023-07-09 08:30] VITALS: BP_SYST 97; PULSE 79; RESP 17; TEMP 97.6; O2SAT 97; O2SAT 98
[2023-07-09] MEDS ORDERED: POTASSIUM CHLORIDE 60 MEQ in NS 500 ML IV ONE (09:00)
[2023-07-09] MEDS: ENOXAPARIN SODIUM 30 MG/0.3 ML SYRINGE SUBCUT SCH (10:14)
[2023-07-09] MEDS: ASPIRIN 81 MG TABLET(ECOTRIN) PO SCH (10:14)
[2023-07-09] MEDS: FOLIC ACID 1 MG TABLET PO SCH (10:14)
[2023-07-09] MEDS: metroNIDAZOLE 500 MG TABLET PO SCH ×2 (10:14→21:03)
[2023-07-09] MEDS ORDERED: HEPARIN SODIUM,PORCINE 5,000 UNITS/ML VIAL SUBCUT ONE (11:00)
[2023-07-09] MEDS ORDERED: MAGNESIUM SULFATE 4 GM in D5W 250 ML IV ONE (12:00)
[2023-07-09] MEDS: levoFLOXacin 500 MG TABLET PO SCH (16:47)
[2023-07-09 20:15] VITALS: O2SAT 100
[2023-07-09 20:37] VITALS: BP_SYST 99; PULSE 82; RESP 16; TEMP 96.7; O2SAT 100
[2023-07-09] MEDS: POTASSIUM CHLORIDE 20 MEQ TABLET.ER PO SCH (21:03)
[2023-07-09] MEDS: HEPARIN SODIUM,PORCINE 5,000 UNITS/ML VIAL SUBCUT SCH (21:17)
[2023-07-10 00:18] VITALS: BP_SYST 108; PULSE 87; RESP 14; TEMP 97; O2SAT 100
[2023-07-10] MEDS: NACL 0.9% 1,000 ML IV SCH ×4 (03:26→20:36)
[2023-07-10 06:13] LABS: BASOPHILS % (AUTO) 0.2 % (0.0-2.0); EOSINOPHILS # (AUTO) 0.2 K/uL (0.0-0.4); EOSINOPHILS % (AUTO) 2.4 % (0.0-4.0); HEMOGLOBIN 8.6 g/dL (12.0-16.0); LYMPHOCYTES # (AUTO) 0.6 K/uL (1.0-5.5); LYMPHOCYTES % (AUTO) 7.9 % (20.5-51.5); MEAN CORPUSCULAR HEMOGLOBIN 27 pg (27-31); MEAN CORPUSCULAR HGB CONC 32 % (32-36); MEAN CORPUSCULAR VOLUME 86 fL (79.0-98.0); MONOCYTES # (AUTO) 0.4 K/uL (0.0-1.0); MONOCYTES % (AUTO) 5.2 % (1.7-9.3); NEUTROPHILS # (AUTO) 6.5 K/uL (1.8-7.7); NEUTROPHILS % (AUTO) 84.3 % (40.0-70.0); PLATELET COUNT (AUTO) 127 K/uL (130-430); RED BLOOD CELL COUNT(AUTO) 3.13 MIL/uL (4.2-6.2); RED CELL DISTRIBUTION WIDTH 15.7 % (9.0-15.0); WHITE BLOOD COUNT (AUTO) 7.7 K/uL (4.8-10.8)
[2023-07-10 06:43] LABS: ALBUMIN 2.1 g/dL (3.4-4.8); CREATININE 2.01 mg/dL (0.55-1.30); PHOSPHORUS 2.2 mg/dL (2.7-4.5); TOTAL BILIRUBIN 0.4 mg/dL (0.0-1.0); TOTAL PROTEIN, SERUM 5.6 g/dL (6.4-8.3)
[2023-07-10 07:25] LABS: POTASSIUM 2.4 mmol/L (3.5-5.1)
[2023-07-10 07:57] VITALS: BP_SYST 113; PULSE 75; RESP 16; TEMP 96.8; O2SAT 100
[2023-07-10] MEDS: metroNIDAZOLE 500 MG TABLET PO SCH ×2 (08:37→20:36)
[2023-07-10] MEDS: POTASSIUM CHLORIDE 20 MEQ TABLET.ER PO SCH ×2 (08:37→20:36)
[2023-07-10] MEDS: ASPIRIN 81 MG TABLET(ECOTRIN) PO SCH (08:38)
[2023-07-10] MEDS: FOLIC ACID 1 MG TABLET PO SCH (08:38)
[2023-07-10] MEDS: HEPARIN SODIUM,PORCINE 5,000 UNITS/ML VIAL SUBCUT SCH ×2 (08:43→20:39)
[2023-07-10 08:45] VITALS: O2SAT 100
[2023-07-10 11:45] VITALS: BP_SYST 100; PULSE 79; RESP 16; TEMP 97.2; O2SAT 100
[2023-07-10] MEDS ORDERED: MORPHINE 2 MG/ML INJ. SYRINGE IVP ONE (12:00)
[2023-07-10] MEDS ORDERED: NALOXONE HCL 0.4 MG/ML AMP (NARCAN) IVP PRN (12:00)
[2023-07-10] MEDS ORDERED: CALCIUM GLUC 2 GM/100ML-NACL 100 ML IV ONE (12:00)
[2023-07-10] MEDS ORDERED: K PHOS 30 MM in NS 250 ML IV ONE (13:00)
[2023-07-10] MEDS: levoFLOXacin 500 MG TABLET PO SCH (14:32)
[2023-07-10 18:04] VITALS: BP_SYST 105; PULSE 98; RESP 18; TEMP 98.1; O2SAT 100
[2023-07-10 20:50] VITALS: BP_SYST 116; PULSE 96; RESP 18; TEMP 98.3; O2SAT 100
[2023-07-11 00:50] VITALS: BP_SYST 113; PULSE 90; RESP 17; TEMP 97; O2SAT 100
[2023-07-11] MEDS: NACL 0.9% 1,000 ML IV SCH ×4 (02:40→22:40)
[2023-07-11 06:02] LABS: BASOPHILS # (AUTO) 0.1 K/uL (0.0-0.2); BASOPHILS % (AUTO) 0.7 % (0.0-2.0); EOSINOPHILS # (AUTO) 0.2 K/uL (0.0-0.4); EOSINOPHILS % (AUTO) 1.7 % (0.0-4.0); HEMATOCRIT 26.8 % (36-48); HEMOGLOBIN 8.6 g/dL (12.0-16.0); LYMPHOCYTES # (AUTO) 0.8 K/uL (1.0-5.5); LYMPHOCYTES % (AUTO) 8.5 % (20.5-51.5); MEAN CORPUSCULAR HEMOGLOBIN 28 pg (27-31); MEAN CORPUSCULAR HGB CONC 32 % (32-36); MEAN CORPUSCULAR VOLUME 86 fL (79.0-98.0); MONOCYTES # (AUTO) 0.4 K/uL (0.0-1.0); MONOCYTES % (AUTO) 3.9 % (1.7-9.3); NEUTROPHILS % (AUTO) 85.2 % (40.0-70.0); PLATELET COUNT (AUTO) 137 K/uL (130-430); RED CELL DISTRIBUTION WIDTH 15.5 % (9.0-15.0); WHITE BLOOD COUNT (AUTO) 9.4 K/uL (4.8-10.8)
[2023-07-11 06:31] LABS: CALCIUM 8.1 mg/dL (8.4-11.0); CREATININE 1.42 mg/dL (0.55-1.30)
[2023-07-11 06:59] LABS: POTASSIUM 2.6 mmol/L (3.5-5.1)
[2023-07-11 08:00] VITALS: BP_SYST 118; PULSE 85; RESP 16; TEMP 97.2; O2SAT 100
[2023-07-11] MEDS: metroNIDAZOLE 500 MG TABLET PO SCH ×2 (10:19→21:03)
[2023-07-11] MEDS: FOLIC ACID 1 MG TABLET PO SCH (10:19)
[2023-07-11] MEDS: ASPIRIN 81 MG TABLET(ECOTRIN) PO SCH (10:19)
[2023-07-11] MEDS: HEPARIN SODIUM,PORCINE 5,000 UNITS/ML VIAL SUBCUT SCH ×2 (10:20→21:11)
[2023-07-11] MEDS ORDERED: POTASSIUM CHLORIDE 20 MEQ/PKT PACKET PO ONE (10:30)
[2023-07-11] MEDS ORDERED: CALCIUM GLUC 2 GM/100ML-NACL 100 ML IV ONE (11:15)
[2023-07-11] MEDS ORDERED: KCL 40 mEq in 100 mL (PREMIX) 100 ML IV ONE (11:30)
[2023-07-11 12:00] VITALS: BP_SYST 120; PULSE 90; RESP 18; TEMP 97; O2SAT 100
[2023-07-11] MEDS: levoFLOXacin 500 MG TABLET PO SCH (15:06)
[2023-07-11 16:00] VITALS: BP_SYST 123; PULSE 100; RESP 17; TEMP 97.6; O2SAT 100
[2023-07-11 20:00] VITALS: BP_SYST 112; PULSE 102; RESP 18; TEMP 97.8; O2SAT 100
[2023-07-11] MEDS: POTASSIUM CHLORIDE 20 MEQ/PKT PACKET PO SCH (21:03)
[2023-07-12] VITALS (7 sets, daily range): BP systolic 103–121; PULSE 72–122; RESP 15–20; TEMP 97.8–99.3; O2SAT 98–100
[2023-07-12] MEDS: NACL 0.9% 1,000 ML IV SCH ×3 (05:20→23:51)
[2023-07-12 06:26] LABS: BASOPHILS % (AUTO) 0.4 % (0.0-2.0); EOSINOPHILS # (AUTO) 0.2 K/uL (0.0-0.4); EOSINOPHILS % (AUTO) 1.8 % (0.0-4.0); HEMATOCRIT 25.9 % (36-48); HEMOGLOBIN 8.3 g/dL (12.0-16.0); LYMPHOCYTES # (AUTO) 1.1 K/uL (1.0-5.5); LYMPHOCYTES % (AUTO) 12.2 % (20.5-51.5); MEAN CORPUSCULAR HEMOGLOBIN 28 pg (27-31); MEAN CORPUSCULAR HGB CONC 32 % (32-36); MEAN CORPUSCULAR VOLUME 87 fL (79.0-98.0); MONOCYTES # (AUTO) 0.6 K/uL (0.0-1.0); MONOCYTES % (AUTO) 6.4 % (1.7-9.3); NEUTROPHILS % (AUTO) 79.2 % (40.0-70.0); PLATELET COUNT (AUTO) 135 K/uL (130-430); RED BLOOD CELL COUNT(AUTO) 2.98 MIL/uL (4.2-6.2); RED CELL DISTRIBUTION WIDTH 15.8 % (9.0-15.0); WHITE BLOOD COUNT (AUTO) 8.9 K/uL (4.8-10.8)
[2023-07-12 06:46] LABS: ALBUMIN 2.2 g/dL (3.4-4.8); CALCIUM 8.7 mg/dL (8.4-11.0); CREATININE 1.37 mg/dL (0.55-1.30); PHOSPHORUS 2.6 mg/dL (2.7-4.5); TOTAL BILIRUBIN 0.6 mg/dL (0.0-1.0); TOTAL PROTEIN, SERUM 5.8 g/dL (6.4-8.3)
[2023-07-12 07:34] LABS: POTASSIUM 2.7 mmol/L (3.5-5.1)
[2023-07-12] MEDS ORDERED: POTASSIUM CHLORIDE 20 MEQ TABLET.ER PO ONE (08:15)
[2023-07-12 08:24] LABS: ERYTHROCYTE SEDIMENTATION RATE 64 MM/HR (0-20)
[2023-07-12] MEDS: HEPARIN SODIUM,PORCINE 5,000 UNITS/ML VIAL SUBCUT SCH ×2 (09:38→21:00)
[2023-07-12] MEDS: FOLIC ACID 1 MG TABLET PO SCH (09:39)
[2023-07-12] MEDS: metroNIDAZOLE 500 MG TABLET PO SCH ×2 (09:39→21:00)
[2023-07-12] MEDS: ASPIRIN 81 MG TABLET(ECOTRIN) PO SCH (09:39)
[2023-07-12] MEDS: POTASSIUM CHLORIDE 20 MEQ/PKT PACKET PO SCH ×2 (09:39→21:00)
[2023-07-12] MEDS ORDERED: MAGNESIUM SULFATE 50 ML IV ONE (11:00)
[2023-07-12] MEDS ORDERED: K PHOS 30 MM in NS 250 ML IV ONE (12:00)
[2023-07-12] MEDS: levoFLOXacin 500 MG TABLET PO SCH (15:03)
[2023-07-13 00:31] VITALS: BP_SYST 112; PULSE 107; RESP 14; TEMP 98.3; O2SAT 100
[2023-07-13 05:40] LABS: BASOPHILS # (AUTO) 0.1 K/uL (0.0-0.2); EOSINOPHILS # (AUTO) 0.2 K/uL (0.0-0.4); HEMATOCRIT 24.3 % (36-48); HEMOGLOBIN 7.7 g/dL (12.0-16.0); LYMPHOCYTES # (AUTO) 0.8 K/uL (1.0-5.5); LYMPHOCYTES % (AUTO) 11.6 % (20.5-51.5); MEAN CORPUSCULAR HEMOGLOBIN 27 pg (27-31); MEAN CORPUSCULAR HGB CONC 32 % (32-36); MEAN CORPUSCULAR VOLUME 86 fL (79.0-98.0); MONOCYTES # (AUTO) 0.5 K/uL (0.0-1.0); MONOCYTES % (AUTO) 6.7 % (1.7-9.3); NEUTROPHILS # (AUTO) 5.6 K/uL (1.8-7.7); NEUTROPHILS % (AUTO) 77.7 % (40.0-70.0); PLATELET COUNT (AUTO) 136 K/uL (130-430); RED BLOOD CELL COUNT(AUTO) 2.81 MIL/uL (4.2-6.2); RED CELL DISTRIBUTION WIDTH 15.8 % (9.0-15.0); WHITE BLOOD COUNT (AUTO) 7.2 K/uL (4.8-10.8)
[2023-07-13] MEDS: NACL 0.9% 1,000 ML IV SCH (05:43)
[2023-07-13 06:23] LABS: CALCIUM 7.3 mg/dL (8.4-11.0); CREATININE 1.32 mg/dL (0.55-1.30); PHOSPHORUS 3.7 mg/dL (2.7-4.5)
[2023-07-13 08:00] VITALS: BP_SYST 107; PULSE 109; RESP 18; TEMP 98.1; O2SAT 100
[2023-07-13] MEDS: POTASSIUM CHLORIDE 20 MEQ/PKT PACKET PO SCH ×3 (09:00→20:23)
[2023-07-13] MEDS: ASPIRIN 81 MG TABLET(ECOTRIN) PO SCH (09:41)
[2023-07-13] MEDS: metroNIDAZOLE 500 MG TABLET PO SCH ×2 (09:41→20:23)
[2023-07-13] MEDS: FOLIC ACID 1 MG TABLET PO SCH (09:41)
[2023-07-13] MEDS: HEPARIN SODIUM,PORCINE 5,000 UNITS/ML VIAL SUBCUT SCH ×2 (09:43→20:23)
[2023-07-13] MEDS ORDERED: KCL 40 mEq in 100 mL (PREMIX) 100 ML IV ONE (10:30)
[2023-07-13] MEDS ORDERED: CALCIUM GLUCONATE 2 GM in NS 100 ML IV ONE (11:00)
[2023-07-13 12:03] VITALS: BP_SYST 137; PULSE 74; RESP 16; TEMP 98.6; O2SAT 98
[2023-07-13] MEDS: levoFLOXacin 500 MG TABLET PO SCH (13:55)
[2023-07-13 16:50] VITALS: BP_SYST 110; PULSE 80; RESP 15; TEMP 98.6; O2SAT 97
[2023-07-13 20:00] VITALS: BP_SYST 101; PULSE 110; RESP 18; TEMP 97.7; O2SAT 100
[2023-07-14 00:54] VITALS: BP_SYST 122; PULSE 113; RESP 22; TEMP 97.9; O2SAT 100
[2023-07-14 07:46] VITALS: BP_SYST 105; PULSE 109; RESP 18; TEMP 98.4; O2SAT 100
[2023-07-14] MEDS: POTASSIUM CHLORIDE 20 MEQ/PKT PACKET PO SCH ×2 (09:00→21:21)
[2023-07-14] MEDS: ASPIRIN 81 MG TABLET(ECOTRIN) PO SCH (09:00)
[2023-07-14] MEDS: FOLIC ACID 1 MG TABLET PO SCH (09:00)
[2023-07-14 09:26] LABS: BASOPHILS % (AUTO) 0.4 % (0.0-2.0); EOSINOPHILS # (AUTO) 0.1 K/uL (0.0-0.4); EOSINOPHILS % (AUTO) 1.8 % (0.0-4.0); HEMATOCRIT 26.5 % (36-48); HEMOGLOBIN 8.5 g/dL (12.0-16.0); LYMPHOCYTES # (AUTO) 1.5 K/uL (1.0-5.5); MEAN CORPUSCULAR HEMOGLOBIN 28 pg (27-31); MEAN CORPUSCULAR HGB CONC 32 % (32-36); MEAN CORPUSCULAR VOLUME 86 fL (79.0-98.0); MONOCYTES # (AUTO) 0.5 K/uL (0.0-1.0); MONOCYTES % (AUTO) 7.7 % (1.7-9.3); NEUTROPHILS # (AUTO) 4.9 K/uL (1.8-7.7); NEUTROPHILS % (AUTO) 69.1 % (40.0-70.0); PLATELET COUNT (AUTO) 164 K/uL (130-430); RED BLOOD CELL COUNT(AUTO) 3.09 MIL/uL (4.2-6.2); WHITE BLOOD COUNT (AUTO) 7.1 K/uL (4.8-10.8)
[2023-07-14 09:39] LABS: ALBUMIN 2.5 g/dL (3.4-4.8); CALCIUM 8.9 mg/dL (8.4-11.0); CREATININE 1.34 mg/dL (0.55-1.30); PHOSPHORUS 2.8 mg/dL (2.7-4.5); TOTAL BILIRUBIN 0.5 mg/dL (0.0-1.0); TOTAL PROTEIN, SERUM 6.3 g/dL (6.4-8.3)
[2023-07-14 09:42] LABS: POTASSIUM 2.6 mmol/L (3.5-5.1)
[2023-07-14 10:20] VITALS: O2SAT 98
[2023-07-14 12:00] VITALS: BP_SYST 107; PULSE 80; RESP 18; TEMP 97.6; O2SAT 97
[2023-07-14] MEDS ORDERED: POTASSIUM CHLORIDE 40 MEQ in D5W 250 ML IV ONE (12:00)
[2023-07-14 16:00] VITALS: BP_SYST 95; PULSE 88; RESP 18; TEMP 97.8; O2SAT 97
[2023-07-14] MEDS ORDERED: MAGNESIUM SULFATE 4 GM in D5W 250 ML IV ONE (16:00)
[2023-07-14 20:00] VITALS: BP_SYST 102; PULSE 88; RESP 18; TEMP 97.5; O2SAT 98
[2023-07-15 04:18] LABS: BASOPHILS % (AUTO) 0.5 % (0.0-2.0); EOSINOPHILS % (AUTO) 0.8 % (0.0-4.0); HEMATOCRIT 22.8 % (36-48); HEMOGLOBIN 7.3 g/dL (12.0-16.0); LYMPHOCYTES # (AUTO) 0.8 K/uL (1.0-5.5); LYMPHOCYTES % (AUTO) 13.9 % (20.5-51.5); MEAN CORPUSCULAR HEMOGLOBIN 27 pg (27-31); MEAN CORPUSCULAR HGB CONC 32 % (32-36); MEAN CORPUSCULAR VOLUME 86 fL (79.0-98.0); MONOCYTES # (AUTO) 0.5 K/uL (0.0-1.0); MONOCYTES % (AUTO) 7.8 % (1.7-9.3); NEUTROPHILS # (AUTO) 4.5 K/uL (1.8-7.7); PLATELET COUNT (AUTO) 153 K/uL (130-430); RED BLOOD CELL COUNT(AUTO) 2.66 MIL/uL (4.2-6.2); WHITE BLOOD COUNT (AUTO) 5.8 K/uL (4.8-10.8)
[2023-07-15 04:30] LABS: CALCIUM 7.8 mg/dL (8.4-11.0); CREATININE 1.23 mg/dL (0.55-1.30); PHOSPHORUS 2.6 mg/dL (2.7-4.5)
[2023-07-15 04:42] LABS: POTASSIUM 2.5 mmol/L (3.5-5.1)
[2023-07-15] MEDS ORDERED: KCL 40 mEq in 100 mL (PREMIX) 100 ML IV ONE (05:15)
[2023-07-15] MEDS: POTASSIUM CHLORIDE 20 MEQ/PKT PACKET PO SCH ×3 (09:00→21:39)
[2023-07-15] MEDS: ASPIRIN 81 MG TABLET(ECOTRIN) PO SCH (09:47)
[2023-07-15] MEDS: FOLIC ACID 1 MG TABLET PO SCH (09:47)
[2023-07-15 10:00] VITALS: O2SAT 96
[2023-07-15 12:00] VITALS: BP_SYST 108; PULSE 109; RESP 16; TEMP 97.3
[2023-07-15] MEDS ORDERED: CALCIUM GLUCONATE 2 GM in NS 100 ML IV ONE (12:00)
[2023-07-15] MEDS ORDERED: K PHOS 30 MM in NS 250 ML IV ONE (13:00)
[2023-07-15 16:00] VITALS: BP_SYST 121; PULSE 97; RESP 16; TEMP 96.8
[2023-07-15 20:00] VITALS: BP_SYST 113; PULSE 85; RESP 18; TEMP 98.8
[2023-07-16] VITALS: BP_SYST 122; PULSE 73; RESP 18; TEMP 97; O2SAT 98
[2023-07-16 08:00] VITALS: BP_SYST 98; PULSE 89; RESP 22; TEMP 97.9; O2SAT 100
[2023-07-16 09:31] LABS: BASOPHILS % (AUTO) 0.4 % (0.0-2.0); EOSINOPHILS # (AUTO) 0.1 K/uL (0.0-0.4); EOSINOPHILS % (AUTO) 1.1 % (0.0-4.0); HEMATOCRIT 27.1 % (36-48); HEMOGLOBIN 8.6 g/dL (12.0-16.0); LYMPHOCYTES # (AUTO) 1.6 K/uL (1.0-5.5); LYMPHOCYTES % (AUTO) 22.6 % (20.5-51.5); MEAN CORPUSCULAR HEMOGLOBIN 27 pg (27-31); MEAN CORPUSCULAR HGB CONC 32 % (32-36); MEAN CORPUSCULAR VOLUME 86 fL (79.0-98.0); MONOCYTES # (AUTO) 0.5 K/uL (0.0-1.0); MONOCYTES % (AUTO) 7.1 % (1.7-9.3); NEUTROPHILS # (AUTO) 4.8 K/uL (1.8-7.7); NEUTROPHILS % (AUTO) 68.8 % (40.0-70.0); PLATELET COUNT (AUTO) 211 K/uL (130-430); RED BLOOD CELL COUNT(AUTO) 3.15 MIL/uL (4.2-6.2); RED CELL DISTRIBUTION WIDTH 16.1 % (9.0-15.0); WHITE BLOOD COUNT (AUTO) 6.9 K/uL (4.8-10.8)
[2023-07-16 09:52] LABS: ALBUMIN 2.6 g/dL (3.4-4.8); CALCIUM 8.9 mg/dL (8.4-11.0); CREATININE 1.59 mg/dL (0.55-1.30); PHOSPHORUS 4.6 mg/dL (2.7-4.5); POTASSIUM 3.3 mmol/L (3.5-5.1); TOTAL BILIRUBIN 0.4 mg/dL (0.0-1.0); TOTAL PROTEIN, SERUM 6.6 g/dL (6.4-8.3)
[2023-07-16] MEDS: ASPIRIN 81 MG TABLET(ECOTRIN) PO SCH (10:17)
[2023-07-16] MEDS: POTASSIUM CHLORIDE 20 MEQ/PKT PACKET PO SCH (10:17)
[2023-07-16] MEDS: FOLIC ACID 1 MG TABLET PO SCH (10:17)
[2023-07-16] MEDS ORDERED: POTASSIUM CHLOR 20 mEq/Packet PO (10:28)
[2023-07-16] MEDS ORDERED: ASPI-1393 PO ×2 (10:28)
[2023-07-16 12:00] VITALS: BP_SYST 100; PULSE 114; RESP 20; TEMP 99.8; O2SAT 90
[2023-07-16 12:14] VITALS: BP_SYST 100; PULSE 114; RESP 20; TEMP 99.8; O2SAT 90
[2023-07-27] MEDS ORDERED: VITD2000 PO (10:25)
[2023-07-27] MEDS ORDERED: LOM2.5 PO (10:25)
[2023-07-27] MEDS ORDERED: CYAN-45 PO (10:25)
[2023-07-27] MEDS ORDERED: MIRT-92 PO (10:25)
[2023-07-27] MEDS ORDERED: IMO2 PO (10:25)
[2023-07-27] MEDS ORDERED: Ferrous Sulfate PO (10:25)
[2023-07-27] MEDS ORDERED: DRON5CAP26 PO (10:25)
[2023-07-27] MEDS ORDERED: MULT-591 PO (10:37)
[2023-07-27] MEDS ORDERED: POTA-197 PO (10:48)
== END 2023-07-16 13:45 | disposition home health service (06) | DRG 426 ==
LOC: SED 20:52 → STU 07-07 04:21
PROVIDERS: ADMIT Preventive Medicine Preventive Medicine/Occupational Environmental Medicine; ATTEND Preventive Medicine Preventive Medicine/Occupational Environmental Medicine
DX: E87.1 Hypo-osmolality and hyponatremia (principal); N17.0 Acute kidney failure with tubular necrosis; E43 Unspecified severe protein-calorie malnutrition; D69.6 Thrombocytopenia, unspecified; E87.20 Acidosis, unspecified; I24.89 Other forms of acute ischemic heart disease; E83.51 Hypocalcemia; E83.39 Other disorders of phosphorus metabolism; E83.41 Hypermagnesemia; E86.0 Dehydration; C18.9 Malignant neoplasm of colon, unspecified; E88.09 Other disorders of plasma-protein metabolism, not elsewhere classified; E87.6 Hypokalemia; E78.5 Hyperlipidemia, unspecified; E83.52 Hypercalcemia; D64.9 Anemia, unspecified; D72.829 Elevated white blood cell count, unspecified; G89.4 Chronic pain syndrome; Z88.0 Allergy status to penicillin; Z88.8 Allergy status to other drugs, medicaments and biological substances; Z79.899 Other long term (current) drug therapy; Z80.3 Family history of malignant neoplasm of breast; Z85.038 Personal history of other malignant neoplasm of large intestine; Z93.3 Colostomy status; Z68.1 Body mass index [BMI] 19.9 or less, adult
CPT/HCPCS: 36415; 71045; 76376; 76770; 80048; 80053; 80061; 81000; 81001; 82150; 82746; 83605; 83735; 83880; 84100; 84132; 84484; 85025; 85379; 85651-TC; 85730-TC; 87040; 87086; 93005; 93306; 93970; 94640; 94760; 97110-GP; 97116-GP; 97530-GP; 99291; G0378; J0610; J1644; J1650; J2060; J3475; J3480; J7040; J7050; J7060; Q9964

== ENCOUNTER 2023-07-31 13:12 | Emergency (ER) | payer MEDICAID ==
[~2023-07-31] VITALS: Ht 177.8 cm; Wt 54.4 kg
[~2023-07-31 13:12] MED LIST changes: +CYAN-45 PO; +DRON5CAP26 PO; -FURO-150 PO; +Ferrous Sulfate PO; +IMO2 PO; -LEVO-62 PO; +LOM2.5 PO; -METR-154 PO; +MIRT-92 PO; +MULT-591 PO; +POTA-197 PO; -TRAM50TA2 PO; +VITD2000 PO
[2023-07-31 14:38] VITALS: BP_SYST 93; PULSE 139; RESP 18; TEMP 98.9; O2SAT 99
[2023-07-31] MEDS ORDERED: NACL 0.9% 1,000 ML IV ONE (14:45)
[2023-07-31 16:34] LABS: BASOPHILS % (AUTO) 0.3 % (0.0-2.0); EOSINOPHILS % (AUTO) 0.2 % (0.0-4.0); HEMATOCRIT 25.7 % (36-48); HEMOGLOBIN 8.1 g/dL (12.0-16.0); LYMPHOCYTES # (AUTO) 1.8 K/uL (1.0-5.5); LYMPHOCYTES % (AUTO) 14.2 % (20.5-51.5); MEAN CORPUSCULAR HEMOGLOBIN 28 pg (27-31); MEAN CORPUSCULAR HGB CONC 32 % (32-36); MEAN CORPUSCULAR VOLUME 89 fL (79.0-98.0); MONOCYTES # (AUTO) 0.8 K/uL (0.0-1.0); MONOCYTES % (AUTO) 6.5 % (1.7-9.3); NEUTROPHILS # (AUTO) 10.3 K/uL (1.8-7.7); NEUTROPHILS % (AUTO) 78.8 % (40.0-70.0); PLATELET COUNT (AUTO) 388 K/uL (130-430); RED BLOOD CELL COUNT(AUTO) 2.89 MIL/uL (4.2-6.2); RED CELL DISTRIBUTION WIDTH 16.8 % (9.0-15.0)
[2023-07-31 16:47] LABS: ANION GAP 15 (5-15); CALCIUM 8.6 mg/dL (8.4-11.0); CARBON DIOXIDE 18 mmol/L (23-29); CHLORIDE 96 mmol/L (98-107); CREATININE 1.37 mg/dL (0.55-1.30); GFR AFRICAN AMERICAN 51 mL/min (>90); GLUCOSE 104 mg/dL (74-106); POTASSIUM 5.4 mmol/L (3.5-5.1); SODIUM SERUM 129 mmol/L (136-145); UREA NITROGEN, BLOOD 14 mg/dL (8-21)
[2023-07-31 16:51] LABS: GFR NON AFRICAN-AMERICAN 42 mL/min (>90)
[2023-07-31 17:02] LABS: ALANINE AMINOTRANSFERASE 21 U/L (12-78); ALBUMIN 2.5 g/dL (3.4-4.8); ASPARTATE AMINOTRANSFERASE 21 U/L (10-37); CREATINE KINASE, TOTAL 29 U/L (26-192); FREE T4 (FREE THYROXINE) 1.2 ng/dL (0.6-1.6); THYROID STIMULATING HORMONE 3.01 uIu/mL (0.34-4.82); TOTAL BILIRUBIN 0.6 mg/dL (0.0-1.0); TOTAL PROTEIN, SERUM 6.7 g/dL (6.4-8.3)
[2023-07-31 17:06] LABS: ACETONE, SERUM NEGATIVE (NEGATIVE)
[2023-07-31 17:59] LABS: BILIRUBIN,URINE NEGATIVE (NEGATIVE); CLARITY/URINE CLEAR (CLEAR); COLOR,URINE YELLOW (YELLOW); GLUCOSE,URINE NEGATIVE (NEGATIVE); KETONES,URINE NEGATIVE (NEGATIVE); NITRITE, URINE NEGATIVE (NEGATIVE); PH,URINE 7.5 (5.0-8.0); PROTEIN URINE TRACE (NEGATIVE); UROBILINOGEN,URINE 0.2 (0.2-1.0)
[2023-07-31 18:09] LABS: BLOOD, URINE TRACE (NEGATIVE); LEUKOCYTE ESTERASE ,URINE TRACE (NEGATIVE)
[2023-07-31 18:10] LABS: BACTERIA,URINE RARE /HPF (None Seen); RBC,URINE NONE SEEN /HPF (0-3)
[2023-07-31 18:11] LABS: MUCUS,URINE None Seen /LPF (None Seen)
[2023-07-31 19:24] VITALS: BP_SYST 105; PULSE 90; RESP 18; TEMP 98.8; O2SAT 96
== END 2023-07-31 18:00 | disposition home or self-care (01) ==
LOC: SED 13:12
DX: E86.0 Dehydration (principal); Z88.0 Allergy status to penicillin; Z88.8 Allergy status to other drugs, medicaments and biological substances; Z85.038 Personal history of other malignant neoplasm of large intestine; Z79.899 Other long term (current) drug therapy
CPT/HCPCS: 99283; 96360; 80053; 81001; 82009; 82550; 84439; 84443; 85025; 84484; 36415; 81000; 81015; J7030